=== PATIENT | female | born 1960 | race Caucasian/White ===

== ENCOUNTER 2024-05-12 08:43 | Outpatient (CLI) | payer BC, SELFPAY | END 2024-05-12 08:44 | disposition home or self-care (01) | LOC: NFLDREF 05-16 07:15 | PROVIDERS: PCP Physician Assistant; Referring Provider Physician Assistant; Visit Provider Physician Assistant | DX: R30.0 Dysuria (principal); N39.0 Urinary tract infection, site not specified | CPT/HCPCS: 87086; 87186 ==